=== PATIENT | female | born 2000 | race Caucasian/White ===

== ENCOUNTER → 2022-09-15 | Outpatient (CLI) | payer OTHER ==
[2022-09-15 18:53] LABS: HCT 40.2 % (37.2-46.3); HGB 13.5 g/dL (12.0-15.0); MCH 32.8 pg (27.0-32.0); MCHC 33.6 g/dL (32.0-37.0); MCV 97.6 fL (80.0-97.0); Mean Platelet Volume 10.9 fL (9.5-12.2); NRBC Per 100 WBC 0 /100 WBCS (0.0-0.0); Platelet Count 284 X 10*3/uL (140-440); RBC 4.12 X 10*6/uL (4.10-5.20); RDW 12.7 % (11.5-14.5); WBC 11.74 X 10*3/uL (4.50-10.00)
[2022-09-15 19:25] LABS: Hepatitis B Surface Antigen Nonreactive (Nonreactive)
[2022-09-15 21:27] LABS: HIV 2 AB Non-Reactive (Non-Reactive); HIV AB P24 Non-Reactive (Non-Reactive); HIV P24 AG Non-Reactive (Non-Reactive)
== END | disposition home or self-care (01) ==
LOC: LABWHC1 12:28
PROVIDERS: ATTEND Obstetrics & Gynecology Obstetrics
DX: Z34.02 Encounter for supervision of normal first pregnancy, second trimester (principal); Z3A.00 Weeks of gestation of pregnancy not specified
CPT/HCPCS: 36415; 85027; 86762; 86780; 86850; 86900; 86901; 87340; 87390

== ENCOUNTER → 2023-03-09 | Outpatient (CLI) | payer OTHER ==
[2023-03-09 03:09] VITALS: BP 99/54; PULSE 86; RESP 16; TEMP 98.2
--- NOTE | 2023-03-15 09:09 | P.MSEPDOC ---
Presenting Problems - Arrival Data Date of Arrival on Unit: 03/09/23 Time of Arrival on Unit: 01:24 Mode of Transport: Ambulatory - Complaint OB-Reason for Admission/Chief Complaint: Possible Onset of Labor Comment: Patient arrived stating that she started having contractions around 2300. after having sexual intercourse. Patient stated that she is unsure if water broke did. feel leaking of fluid after intercourse. Patient states she has had some slight spotting. since intercourse too. Contraction pain is 2/10. Medical History - Information : 1 Para: 0 Term: 0 : 0 Abortions: Spontaneous or Elective: 0 Number of Living Children: 0 - Gestational Age Gestational Age by IDALMIS (wks/days): 39 Weeks and 5 Days - History Comment: denies Review of Systems - Review of Systems Constitutional: No problems Breast: No problems ENT: No problems Cardiovascular: No problems Respiratory: No problems Gastrointestinal: No problems Genitourinary: No problems Musculoskeletal: No problems Neurological: No problems Skin: No problems Vital Signs - Temperature Temperature: 98.2 F Temperature Source: Temporal Artery Scan - Pulse Pulse Oximetery Pulse Rate: 86 Pulse Assessment Method: Pulse Oximetry - Respirations Respiratory Rate: 16 Oxygen Delivery Method: Room Air O2 Sat by Pulse Oximetry: 98 - Blood Pressure Right Arm Blood Pressure: 99/54 Blood Pressure Mean: 69 Blood Pressure Source: Automatic Cuff Medical Screen Scoring - Cervical Exam Dilation (cm): 1 Effacement (%): 60 Station: -2 Membranes: Intact - Uterine Contractions Frequency From (mins): 7 Frequency To (mins): 10 Duration From (seconds): 40 Duration To (seconds): 140 Intensity: Mild Resting: Soft to palpation - Assessment - Baby A Baseline FHR: 120 Heart Rate - NICHD Category: Category I (Normal) NST: Reactive Physician Notification - Physician Notified Physician Notified Date: 03/09/23 Physician Notified Time: 02:44 Physician: Leonor Mantilla Order Received: Yes - Notification Comment Comment: RN spoke with Dr. Mantilla regarding contraction that started 02/05/23 @ 2300 after. having sexual intercourse. RN reported on FHR cat1, contractions irregular 7-10 minutes. apart, pain 2/10, vaginal discharge, no clear fluid leaking, slight pink tinge spotting. vitals, no cervical change with [address] Mantilla is discharging patient and patient is to keep appt with Dr. Gregory. Maternal Triage Index - Non-Urgent/Priority 4 Non-Urgent Priority 4: Yes Criteria Met for Priority 4: Patient arrived stating that she started having contractions around 2300. after having sexual intercourse. Patient stated that she is unsure if water broke did. feel leaking of fluid after intercourse. Patient states she has had some slight spotting. since intercourse too. Contraction pain is 2/10. Disposition - Disposition OB Disposition: Discharge to home Discharge Date: 03/09/23 Discharge Time: 02:45 I agree with the RN Medical Screening Exam: Yes Case reviewed; plan agreed upon as documented in EMR&OBIX.: Yes Diagnosis: FALSE LABOR AT OR AFTER 37 COMPLETED WEEKS OF GESTATION
== END ==
LOC: FBPOP 01:24
PROVIDERS: ATTEND Obstetrics & Gynecology
DX: O47.1 False labor at or after 37 completed weeks of gestation (principal); Z3A.39 39 weeks gestation of pregnancy
CPT/HCPCS: 59025; 84112; 99213

== ENCOUNTER 2023-03-11 03:18 | Inpatient (IN) | payer OTHER ==
[2023-03-11] MEDS ORDERED: AMPICILLIN 2,000 MG in SODIUM CHLORIDE 0.9% 100 ML IVPB STA (05:33)
[2023-03-11] MEDS ORDERED: miSOPROStoL 200 MCG TAB PO PRN (05:33)
[2023-03-11] MEDS ORDERED: OXYTOCIN 10 UNIT/ML 1 ML VIAL IM PRN (05:33)
[2023-03-11] MEDS ORDERED: LIDOCAINE 0.5% (PF) 5 MG/ML (50 ML SDV) SQ PRN (05:33)
[2023-03-11] MEDS ORDERED: METHYLERGONOVINE 0.2 MG/ML 1 ML AMP IM PRN (05:33)
[2023-03-11] MEDS ORDERED: TRANEXAMIC ACID IN NACL,ISO-OS 1,000 MG in EMPTY BAG 1 BAG IV PRN (05:33)
[2023-03-11] MEDS ORDERED: CARBOPROST TROMETHAMINE 250 MCG/ML 1 ML AMP IM PRN (05:33)
[2023-03-11] MEDS ORDERED: TERBUTALINE 1 MG/ML VIAL SQ PRN (05:33)
[2023-03-11] MEDS ORDERED: BUTORPHANOL 2 MG/ML 1 ML VIAL IV PRN (05:36)
[2023-03-11] MEDS ORDERED: NALBUPHINE 10 MG/ML (10 ML MDV) IV PRN (05:44)
[2023-03-11] MEDS ORDERED: OXYTOCIN 30 UNITS/500 ML NS 30 UNIT in SALINE 1 500ML.BAG IV SCH ×2 (05:45→15:45)
[2023-03-11 05:46] LABS: Basophils % (A) 0 %; Eosinophils # (A) 0.1 k/uL (0-0.7); Eosinophils % (A) 1 %; HCT 38.2 % (34.0-46.0); HGB 13.4 gm/dL (11.4-16.0); Lymphocytes # (A) 1.8 k/uL (1.0-4.8); Lymphocytes % (A) 14 %; MCH 34.2 pg (25.0-35.0); MCHC 35.1 g/dL (31.0-37.0); MCV 97.3 fL (80.0-100.0); Mean Platelet Volume 9.5; Monocytes # (A) 0.6 k/uL (0-1.0); Monocytes % (A) 5 %; Neutrophils # (A) 10.3 k/uL (1.3-7.7); Neutrophils % (A) 79 %; Platelet Count 190 k/uL (150-450); RBC 3.93 m/uL (3.80-5.40); RDW 12.9 % (11.5-15.5); WBC 13.1 k/uL (3.8-10.6)
[2023-03-11] MEDS: LACTATED RINGERS 1,000 ML IV SCH ×4 (05:56→09:45)
[2023-03-11] MEDS: AMPICILLIN 1,000 MG in SODIUM CHLORIDE 0.9% 50 ML IVPB SCH ×2 (09:45→13:50)
--- NOTE | 2023-03-11 15:38 | P.HPOB ---
History of Present Illness H&P Date: 03/11/23 Chief Complaint: IUP @ 40 0/7 weeks, labor This is a 22 yo at 40 0/7 weeks that presents with c/o contractions that began yesterday afternoon. She denied ROM. She has been receiving routine care with myself and has been essentially uncomplicated. Patient was admitted overnight, noted to be 4 cm around 7:30 this morning. Patient did request epidural this morning which was placed without difficulty by the anesthesia department. Patient is comfortable. Currently patient is merari every 4 minutes, heart tones are category 1 On bloodwork this patient has a blood type of O+, rubella status immune, B surface antigen negative, HIV negative, RPR is nonreactive, group beta strep culture positive Past Medical History Past Medical History: Asthma Additional Past Medical History / Comment(s): vasovagal syncope with blood draws/needles. History of Any Multi-Drug Resistant Organisms: None Reported Past Surgical History: No Surgical Hx Reported Past Anesthesia/Blood Transfusion Reactions: No Reported Reaction Additional Past Anesthesia/Blood Transfusion Reaction / Comment(s): no hx of blood products received. Past Psychological History: Anxiety, Depression Smoking Status: Never smoker Past Alcohol Use History: None Reported Past Drug Use History: None Reported Medications and Allergies Home Medications Medication Instructions Recorded Confirmed Type Vit No.179/Iron/Folic 1 tablet PO DAILY 03/09/23 03/11/23 History [ Tablet] Allergies Allergy/AdvReac Type Severity Reaction Status Date / Time No Known Allergies Allergy Verified 03/11/23 03:23 Exam Osteopathic Statement: *. No significant issues noted on an osteopathic structural exam other than those noted in the History and Physical/Consult. 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 heart tones returned be category 1 and she is merari every 4 minutes. Results Result Diagrams: 03/11/23 05:33 Abnormal Lab Results - Last 24 Hours (Table) 03/11/23 Range/Units 05:33 WBC 13.1 H (3.8-10.6) k/uL Neutrophils # 10.3 H (1.3-7.7) k/uL Assessment and Plan (1) Term Current Visit: Yes Status: Acute Code(s): Z34.90 - ENCNTR FOR SUPRVSN OF NORMAL , UNSP, UNSP TRIMESTER SNOMED Code(s): 33340810 (2) Positive GBS test Current Visit: Yes Status: Acute Code(s): B95.1 - STREPTOCOCCUS, GROUP B, CAUSING DISEASES CLASSD ELSWHR SNOMED Code(s): 638801589 (3) Active labor Current Visit: Yes Status: Acute Code(s): PVJ7697 - SNOMED Code(s): 154713895 Plan: 22-year-old 1 para 0 at 40-0/7 weeks that presents with complaints of regular painful contractions. Patient was noted to be in active labor no submitted overnight. Patient is currently comfortable with epidural. Amniotomy was performed and clear fluid was obtained. We will augment labor with Pitocin given of contractions since epidural was placed. Anticipate spontaneous vaginal delivery later today.
[2023-03-11] MEDS ORDERED: LANOLIN CREAM 5 GM TUBE TOPICAL PRN (15:40)
[2023-03-11] MEDS ORDERED: SIMETHICONE 80 MG CHEWABLE PO PRN (15:40)
[2023-03-11] MEDS ORDERED: BENZOCAINE/MENTHOL SPRAY 1 GM/SPRAY AEROSOL TOPICAL PRN (15:40)
[2023-03-11] MEDS ORDERED: diphenhydrAMINE 50 MG CAP PO PRN (15:40)
[2023-03-11] MEDS ORDERED: ZOLPIDEM 5 MG TAB PO PRN (15:40)
[2023-03-11] MEDS ORDERED: HYDROCORTISONE 2.5% RECTAL CREAM 30 GM TUBE RECTAL PRN (15:40)
[2023-03-11] MEDS ORDERED: diphenhydrAMINE 25 MG CAP PO PRN (15:40)
[2023-03-11] MEDS ORDERED: diphenhydrAMINE 50 MG/ML 1 ML VIAL IVP PRN ×2 (15:40)
--- NOTE | 2023-03-11 15:40 | P.PROBDLV ---
Vaginal Delivery Note - . Vaginal Delivery Note: This is a 22-year-old 1 para 0 that presented at 40-0/7 weeks with complaints of regular painful contractions. Patient had been receiving routine care which has been essentially uncomplicated. Patient was noted to be group beta strep positive culture therefore antibiotics were begun when she was admitted. Patient made slow progress to the night and this morning was noted to be 6 cm amniotomy was performed and clear fluid was obtained. Patient did become uncomfortable and requested epidural throughout the night in addition. Patient made slow progress through the day eventually she was noted to be complete and began pushing. With excellent maternal effort she had a normal spontaneous vaginal delivery of a viable female at 1518, Apgars of 9 and 9 at one and 5 minutes respectively. Weight is pending as the infant is on the maternal abdomen. After two-minute delay the local cord was doubly clamped and cut. The placenta was delivered spontaneously intact with three-vessel cord being noted. Uterus is noted to be firm and below the umbilicus at that time. On inspection the patient's vaginal vault a clitoral laceration was appreciated. This was injected with lidocaine and repaired with 4-0 chromic in a running locked fashion. Hemostasis was appreciated after closure. Full inspection of the vaginal cuff is revealed no further lacerations. Bladder was drained with a red rubber catheter for approximately 100 mL of clear yellow urine. All counts were noted be correct 2 at the end of delivery. Patient and tolerated delivery well and are resting comfortably.
[2023-03-11] MEDS: IBUPROFEN 600 MG TAB PO SCH ×2 (15:58→23:47)
[2023-03-11 18:50] VITALS: RESP 16
[2023-03-11] MEDS: ACETAMINOPHEN TAB 325 MG TAB PO PRN (19:04)
[2023-03-11] MEDS: SENNOSIDES-DOCUSATE SODIUM 1 EACH TAB PO SCH (19:50)
[2023-03-12] MEDS: ACETAMINOPHEN TAB 325 MG TAB PO PRN (05:26)
[2023-03-12] MEDS: IBUPROFEN 600 MG TAB PO SCH ×2 (06:38→13:27)
--- NOTE | 2023-03-12 09:16 | P.DS ---
Providers Date of admission: 03/11/23 05:16 Expected date of discharge: 03/12/23 Attending physician: Consuelo Gregory Primary care physician: Stated None - Discharge Diagnosis(es) (1) Term Current Visit: Yes Status: Acute (2) Positive GBS test Current Visit: Yes Status: Acute (3) Active labor Current Visit: Yes Status: Acute Hospital Course: Cystoscopy a 22-year-old 1 now para 1 presented to labor and delivery on 03/11 with complaints of regular painful contractions. Patient was noted to be 4 cm dilated upon admission. Patient been receiving routine care with myself which appeared essentially uncomplicated. Patient does have a past medical history of asthma. She states her asthma has been well controlled throughout the . Upon admission patient noted good movement, denied vaginal bleeding or loss of fluid. Patient was known group B beta strep positive and IV antibiotics were begun. Patient made slow progress through the night and in the morning amniotomy was performed clear fluid was obtained. Patient did receive an epidural just prior to amniotomy. Patient progressed slowly through labor Pitocin augmentation of labor was begun. Patient eventually was noted to be completely dilated. Patient was placed in a modified lithotomy position and with excellent maternal effort had a normal spontaneous vaginal delivery of a viable female at 1518, weight of 7 pounds 8.8 ounces, Apgars of 9 and 9 at one and 5 minutes respectively. Patient did sustain a clitoral laceration was was repaired in usual fashion with 4-0 chromic after instillation of lidocaine. Patient's post course has been uneventful. On this day #1 she is ambulating and voiding without difficulty. She is tolerating a regular diet without nausea or vomiting. She states her pain is well-controlled. She states her lochia is moderate. She is pumping. Patient Condition at Discharge: Good Plan - Discharge Summary New Discharge Prescriptions: No Action Vit No.179/Iron/Folic [ Tablet] 1 tablet PO DAILY Discharge Medication List Vit No.179/Iron/Folic [ Tablet] 1 tablet PO DAILY 03/09/23 [History] Follow up Appointment(s)/Referral(s): Consuelo Gregory DO [Doctor of Osteopathic Medicine] - 4 Weeks Patient Instructions/Handouts: Vaginal Delivery (GEN), Vaginal Delivery (DC) Activity/Diet/Wound Care/Special Instructions: No tubs or intercourse until 6 weeks . [id number] ibuprofen 6 her milligrams every 6 hours as needed for pain. Patient is to call the office to make a routine visit in 4 weeks. Should patient amnio concerns prior to this appointment she is urged to call the office. Discharge Disposition: HOME SELF-CARE
[2023-03-12] MEDS: SENNOSIDES-DOCUSATE SODIUM 1 EACH TAB PO SCH (13:29)
[2023-03-12 16:45] VITALS: BP 120/70; PULSE 80; TEMP 98.3
== END 2023-03-12 16:30 | disposition home or self-care (01) | DRG 807 ==
LOC: FBPOP 03:18 → 4FBP 05:16
PROVIDERS: ADMIT Obstetrics & Gynecology; ATTEND Obstetrics & Gynecology Obstetrics
PROC: 10E0XZZ Delivery of Products of Conception, External Approach (ICD-10-PCS; principal; 2023-03-11)
PROC: 10907ZC Drainage of Amniotic Fluid, Therapeutic from Products of Conception, Via Natural or Artificial Opening (ICD-10-PCS; 2023-03-11)
PROC: 0HQ9XZZ Repair Perineum Skin, External Approach (ICD-10-PCS; 2023-03-11)
DX: O99.824 Streptococcus B carrier state complicating childbirth (principal); Z37.0 Single live birth; J45.909 Unspecified asthma, uncomplicated; O70.0 First degree perineal laceration during delivery; O99.52 Diseases of the respiratory system complicating childbirth; Z3A.40 40 weeks gestation of pregnancy; Z28.310 Unvaccinated for COVID-19
CPT/HCPCS: 59025; 84112; 85025; 86850; 86900; 86901; 99213

== ENCOUNTER 2025-02-06 20:16 | Emergency (ER) | payer OTHER ==
[2025-02-06 20:26] VITALS: RESP 18; TEMP 98.2
--- NOTE | 2025-02-06 21:11 | ED ---
Abdominal Pain HPI - General Chief Complaint: Nausea/Vomiting/Diarrhea Stated Complaint: Abdominal pain, nauseau Time Seen by Provider: 02/06/25 20:27 Source: patient, RN notes reviewed Mode of arrival: ambulatory Limitations: no limitations - History of Present Illness Initial Comments: This is a 24-year-old female who presents to the emergency department for abdominal pain, nausea, and vomiting. Patient states that it has been going on for 7 to 10 days at this point. Abdominal pain is centralized, possibly slightly worse on the right. States that it is flared up by eating almost anything. She has also had constant nausea and vomiting. She was given a prescription for Zofran without any relief. Stools are also very loose. Her symptoms did start shortly after taking medication to delay her period, and she is unsure if it may be related. She is scheduled to have an outpatient ultrasound tomorrow, but states that because of the pain she could not wait. MD Complaint: abdominal pain - Related Data Home Medications Medication Instructions Recorded Confirmed Vit No.179/Iron/Folic 1 tablet PO DAILY 03/09/23 03/11/23 [ Tablet] Previous Rx's Medication Instructions Recorded Dicyclomine [Bentyl] 20 mg PO QID PRN #30 tablet 02/06/25 Ketorolac [Toradol] 10 mg PO Q6HR PRN #15 tab 02/06/25 Prochlorperazine [Compazine] 10 mg PO Q6H PRN #20 tab 02/06/25 Allergies Allergy/AdvReac Type Severity Reaction Status Date / Time No Known Allergies Allergy Verified 02/06/25 20:26 Review of Systems ROS Statement: Those systems with pertinent positive or pertinent negative responses have been documented in the HPI. ROS Other: All systems not noted in ROS Statement are negative. Past Medical History Past Medical History: Asthma Additional Past Medical History / Comment(s): vasovagal syncope with blood draws/needles. History of Any Multi-Drug Resistant Organisms: None Reported Past Surgical History: No Surgical Hx Reported Past Anesthesia/Blood Transfusion Reactions: No Reported Reaction Additional Past Anesthesia/Blood Transfusion Reaction / Comment(s): no hx of blood products received. Past Psychological History: Anxiety, Depression Smoking Status: Never smoker Past Alcohol Use History: None Reported Past Drug Use History: None Reported General Exam Limitations: no limitations General appearance: alert, in no apparent distress Head exam: Present: atraumatic, normocephalic, normal inspection Respiratory exam: Present: normal lung sounds bilaterally. Absent: respiratory distress, wheezes, rales, rhonchi, stridor Cardiovascular Exam: Present: regular rate, normal rhythm GI/Abdominal exam: Present: soft, normal bowel sounds. Absent: distended, tenderness, guarding, rebound, rigid Neurological exam: Present: alert, oriented X3, CN II-XII intact Psychiatric exam: Present: normal affect, normal mood Skin exam: Present: warm, dry, intact, normal color. Absent: rash Course Vital Signs 02/06/25 02/06/25 20:23 22:55 Temperature 98.2 F Pulse Rate 72 76 Respiratory 18 18 Rate Blood Pressure 101/64 92/66 O2 Sat by Pulse 100 100 Oximetry Medical Decision Making - Medical Decision Making This is a 24-year-old female who presents to the emergency department for abdominal pain, nausea, and vomiting. Was pt. sent in by a medical professional or institution? @ -No Did you speak to anyone other than the patient for history? @ -No Did you review nursing and triage notes? @ -Yes, and I agree, it is accurate with regards to the patient's symptoms. Were old charts reviewed? @ -No Differential Diagnosis? @ -Differential Abdominal Pain Women: Appendicitis, Cholecystitis, diverticulosis, ischemic bowel, pancreatitis, hepatitis, UTI, gastroenteritis, AAA, incarcerated hernia, bowel obstruction, constipation, inflammatory bowel, hepatitis, peptic ulcer disease, splenic infarction, perforated viscus, vulvitis, ovarian torsion, PID, kidney stone, placenta abruption, this is not meant to be an all-inclusive list EKG interpreted by me (3pts min.)? @ -EKG interpreted by me demonstrating the following: Sinus rhythm. Ventricular rate 69 bpm, ID interval 164 ms, QRS duration 85 ms, QTc 380 ms. X-rays interpreted by me (1pt min.)? @ -Not obtained CT interpreted by me (1pt min.)? @ -Not obtained U/S interpreted by me (1pt. min.)? @ -Gallbladder ultrasound obtained. My interpretation identifies no cholelithiasis. What testing was considered but not performed? (CT, X-rays, U/S, labs)? Why? @ -CT scan of the abdomen and pelvis, however patient declined. What meds were considered but not given? Why? @ -None Did you discuss the management of the patient with other professionals? @ -No Did you reconcile home meds? @ -No Was smoking cessation discussed for >3mins.? @ -No Was critical care preformed (if so, how long)? @ -No Were there social determinants of health that impacted care today? How? (Homelessness, low income, unemployed, alcoholism, drug addiction, transportation, low edu. Level, literacy, decrease access to med. care, longterm, rehab)? @ -No Was there de-escalation of care discussed even if they declined? (Discuss DNR or withdrawal of care, Hospice)? @ -No What co-morbidities impacted this encounter? (DM, HTN, Smoking, COPD, CAD, Cancer, CVA, Hep., AIDS, mental health diagnosis, sleep apnea, morbid obesity)? @ -None Was patient admitted / discharged? @ -Discharged. Lab work unremarkable. Gallbladder ultrasound obtained revealing no acute process. She was treated with IV fluids, Toradol, Compazine, and pantoprazole, which she states was effective. She had previously been prescribed Zofran which did not help her symptoms. Discussed that at this point the cause of her symptoms is not entirely clear. I did offer a CT scan for further evaluation, however patient declined and states that she was tired and would just like to go home. Advised she follow-up with her primary care provider and discuss further testing with something like a CT scan if indicated. Compazine, Bentyl, and Toradol prescribed for further symptomatic management. Patient discharged home in stable condition. Return precautions reviewed in depth, the patient is instructed to return to the emergency department with any new, worsening, or concerning symptoms. Patient verbalized understanding. Undiagnosed new problem with uncertain prognosis? @ -None Drug Therapy requiring intensive monitoring for toxicity (Heparin, Nitro, I nsulin, Cardizem)? @ -None Were any procedures done? @ -None Diagnosis/symptom? @ -Abdominal pain, nausea and vomiting Acute, or Chronic, or Acute on Chronic? @ -Acute Uncomplicated (without systemic symptoms) or Complicated (systemic symptoms)? @ -Uncomplicated Side effects of treatment? @ -None Exacerbation, Progression, or Severe Exacerbation] @ -Not applicable Poses a threat to life or bodily function? @ -No - Lab Data Result diagrams: 02/06/25 21:09 02/06/25 21:09 Lab Results 02/06/25 02/06/25 02/06/25 Range/Units 21:09 21:09 21:09 WBC 6.64 (4.50-10.00) 10*3/uL RBC 3.98 L (4.10-5.20) 10*6/uL Hgb 12.8 (12.0-15.0) g/dL Hct 36.8 L (37.2-46.3) % MCV 92.5 (80.0-97.0) fL MCH 32.2 H (27.0-32.0) pg MCHC 34.8 (32.0-37.0) g/dL Plt Count 255 (140-440) 10*3/uL MPV 10.4 (9.5-12.2) fL Immature Gran % (Auto) 0 % Neutrophils % 44.2 % Lymphocytes % 39.0 % Monocytes % 11.6 % Eosinophils % 4.4 % Basophils % 0.8 % Immature Gran # 0.00 (0.00-0.04) 10*3/uL Neutrophils # 2.94 (1.80-7.70) 10*3/uL Lymphocytes # 2.59 (0.90-5.00) 10*3/uL Monocytes # 0.77 (0.20-1.00) 10*3/uL Eosinophils # 0.29 (0.04-0.35) 10*3/uL Basophils # 0.05 (0.00-0.10) 10*3/uL Sodium 139 (137-145) mmol/L Potassium 3.9 (3.5-5.1) mmol/L Chloride 106 (98-107) mmol/L Carbon Dioxide 24 (22-30) mmol/L Anion Gap 9 mmol/L BUN 11 (7-17) mg/dL Creatinine 0.78 (0.52-1.04) mg/dL Est GFR (CKD-EPI)AfAm >90 (>60 ml/min/1.73 sqM) Est GFR (CKD-EPI)NonAf >90 (>60 ml/min/1.73 sqM) Glucose 99 (74-99) mg/dL Plasma Lactic Acid Roe 1.0 (0.7-2.0) mmol/L Calcium 9.6 (8.4-10.2) mg/dL Magnesium 2.0 (1.6-2.3) mg/dL Total Bilirubin 0.5 (0.2-1.3) mg/dL AST 18 (14-36) U/L ALT 14 (4-34) U/L Alkaline Phosphatase 65 (38-126) U/L Total Protein 7.1 (6.3-8.2) g/dL Albumin 4.5 (3.5-5.0) g/dL Amylase 84 (30-110) U/L Lipase 129 (23-300) U/L HCG, Qual Not Detected - Radiology Data Radiology results: report reviewed, image reviewed Disposition Clinical Impression: Abdominal pain, Nausea and vomiting Disposition: HOME SELF-CARE Instructions (If sedation given, give patient instructions): Acute Nausea and Vomiting (ED), Abdominal Pain (ED) Additional Instructions: Return to the emergency department with any new, worsening, or concerning symptoms. Take the Toradol with Tylenol as needed for pain relief. If you choose to take the Toradol, do not take any other anti-inflammatories such as ibuprofen, take one or the other. You can try taking the Compazine up to every 6 hours as needed for nausea and vomiting if the Zofran is not effective. You can also try taking the Bentyl up to 4 times daily to help with abdominal pain and cramping. Follow-up with your primary care provider and discuss if additional testing like a CT scan would be warranted. Prescriptions: Dicyclomine [Bentyl] 20 mg PO QID PRN #30 tablet PRN Reason: Gi Upset Prochlorperazine [Compazine] 10 mg PO Q6H PRN #20 tab PRN Reason: Nausea And Vomiting Ketorolac [Toradol] 10 mg PO Q6HR PRN #15 tab PRN Reason: Pain Is patient prescribed a controlled substance at d/c from ED?: No Referrals: Benjamin See MD [Primary Care Provider] - 1-2 days Time of Disposition: 22:51
[2025-02-06] MEDS: SODIUM CHLORIDE 0.9% 1,000 ML IV ONE (21:13)
[2025-02-06] MEDS: PANTOPRAZOLE 40 MG/10 ML VIAL IVP STA (21:13)
[2025-02-06] MEDS: KETOROLAC 15 MG/ML 1 ML VIAL IVP STA (21:13)
[2025-02-06] MEDS: PROCHLORPERAZINE INJ 10 MG/2 ML VIAL IVP STA (21:14)
[2025-02-06 21:42] LABS: Basophils # (A) 0.05 10*3/uL (0.00-0.10); Basophils % (A) 0.8 %; Eosinophils # (A) 0.29 10*3/uL (0.04-0.35); Eosinophils % (A) 4.4 %; HCT 36.8 % (37.2-46.3); HGB 12.8 g/dL (12.0-15.0); Lymphocytes # (A) 2.59 10*3/uL (0.90-5.00); MCH 32.2 pg (27.0-32.0); MCHC 34.8 g/dL (32.0-37.0); MCV 92.5 fL (80.0-97.0); Mean Platelet Volume 10.4 fL (9.5-12.2); Monocytes # (A) 0.77 10*3/uL (0.20-1.00); Monocytes % (A) 11.6 %; Neutrophils # (A) 2.94 10*3/uL (1.80-7.70); Neutrophils % (A) 44.2 %; Platelet Count 255 10*3/uL (140-440); RBC 3.98 10*6/uL (4.10-5.20); RDW 12.6 % (11.5-14.5); WBC 6.64 10*3/uL (4.50-10.00)
[2025-02-06 21:50] LABS: HCG,Qualitative Serum Not Detected
[2025-02-06 21:54] LABS: ALT 14 U/L (4-34); AST 18 U/L (14-36); African American GFR (CKD) >90 (>60 ml/min/1.73 sqM); Albumin 4.5 g/dL (3.5-5.0); Alkaline Phosphatase 65 U/L (38-126); Amylase 84 U/L (30-110); Anion Gap 9 mmol/L; Blood Urea Nitrogen 11 mg/dL (7-17); Calcium 9.6 mg/dL (8.4-10.2); Carbon Dioxide 24 mmol/L (22-30); Chloride 106 mmol/L (98-107); Glucose 99 mg/dL (74-99); Lipase 129 U/L (23-300); Non-African American GFR(CKD) >90 (>60 ml/min/1.73 sqM); Potassium 3.9 mmol/L (3.5-5.1); Sodium 139 mmol/L (137-145); Total Bilirubin 0.5 mg/dL (0.2-1.3); Total Protein 7.1 g/dL (6.3-8.2)
--- NOTE | 2025-02-06 22:45 | US ---
EXAMINATION TYPE: US gallbladder DATE OF EXAM: 02/06/2025 COMPARISON: NONE CLINICAL INDICATION: Female, 24 years old with history of Right sided abdominal pain; RUQ pain TECHNIQUE: Grayscale and color Doppler imaging of the right upper quadrant was performed. FINDINGS: EXAM MEASUREMENTS: Liver Length: 13.0 cm Gallbladder Wall: 0.18 cm CBD: 0.49 cm Right Kidney: 9.9 x 5.1 x 4.1 cm SLOT HOST NOTES: Pancreas: parts seen appear wnl Liver: wnl Gallbladder: wnl Evidence for sonographic Orozco's sign: No CBD: upper limits of normal Right Kidney: wnl IMPRESSION: 1. No acute ultrasound changes right upper quadrant [facility], Workstation: [facility], 02/06/2025 10:43 PM
[2025-02-06 23:02] VITALS: BP 92/66; PULSE 76
[2025-02-06] MEDS: ACET/COD 300 MG/30 MG STARTER PACK 6 TAB BTL PO STA (23:02)
== END 2025-02-06 23:02 | disposition home or self-care (01) ==
LOC: EC 20:16
DX: R11.2 Nausea with vomiting, unspecified (principal); R10.9 Unspecified abdominal pain
CPT/HCPCS: 36415; 93005; 80053; 82150; 83605; 83690; 83735; 85025; 84703; 76705; 99284; 96374; 96375 ×2; 96361; J0780; J1885; J2470

== ENCOUNTER 2025-02-07 00:01 | Emergency (ER) | payer OTHER ==
[2025-02-07 00:12] VITALS: RESP 18; TEMP 98.5
--- NOTE | 2025-02-07 00:31 | ED ---
Recheck HPI - General Chief Complaint: Recheck/Abnormal Lab/Rx Stated Complaint: shaking uncontroablly Time Seen by Provider: 02/07/25 00:13 Source: EMS, RN notes reviewed, old records reviewed Mode of arrival: EMS Limitations: no limitations - History of Present Illness Initial Comments: This is a 24-year-old female to the ER for evaluation of uncontrolled shaking. Patient is of recent hospital discharge where she was given medication for nausea and vomiting patient since he left the ER began to shake uncontrollably and presents to the ER with uncontrolled shaking, mild anxiety MD Complaint: other (Medication reaction) -: hour(s) Associated Symptoms: none Treatments Prior to Arrival: other - Related Data Home Medications Medication Instructions Recorded Confirmed Vit No.179/Iron/Folic 1 tablet PO DAILY 03/09/23 03/11/23 [ Tablet] Previous Rx's Medication Instructions Recorded Dicyclomine [Bentyl] 20 mg PO QID PRN #30 tablet 02/06/25 Ketorolac [Toradol] 10 mg PO Q6HR PRN #15 tab 02/06/25 Prochlorperazine [Compazine] 10 mg PO Q6H PRN #20 tab 02/06/25 Allergies Allergy/AdvReac Type Severity Reaction Status Date / Time No Known Allergies Allergy Verified 02/06/25 20:26 Review of Systems ROS Statement: Those systems with pertinent positive or pertinent negative responses have been documented in the HPI. ROS Other: All systems not noted in ROS Statement are negative. Past Medical History Past Medical History: Asthma Additional Past Medical History / Comment(s): vasovagal syncope with blood draws/needles. History of Any Multi-Drug Resistant Organisms: None Reported Past Surgical History: No Surgical Hx Reported Past Anesthesia/Blood Transfusion Reactions: No Reported Reaction Additional Past Anesthesia/Blood Transfusion Reaction / Comment(s): no hx of blood products received. Past Psychological History: Anxiety, Depression Smoking Status: Never smoker Past Alcohol Use History: None Reported Past Drug Use History: None Reported General Exam Limitations: no limitations General appearance: alert, in no apparent distress Head exam: Present: atraumatic, normocephalic, normal inspection Eye exam: Present: normal appearance, PERRL, EOMI. Absent: scleral icterus, conjunctival injection, periorbital swelling ENT exam: Present: normal exam, mucous membranes moist Neck exam: Present: normal inspection. Absent: tenderness, meningismus, lymphadenopathy Respiratory exam: Present: normal lung sounds bilaterally. Absent: respiratory distress, wheezes, rales, rhonchi, stridor Cardiovascular Exam: Present: regular rate, normal rhythm, normal heart sounds. Absent: systolic murmur, diastolic murmur, rubs, gallop, clicks GI/Abdominal exam: Present: soft, normal bowel sounds. Absent: distended, tenderness, guarding, rebound, rigid Extremities exam: Present: normal inspection, full ROM, normal capillary refill. Absent: tenderness, pedal edema, joint swelling, calf tenderness Back exam: Present: normal inspection Neurological exam: Present: alert, oriented X3, CN II-XII intact Psychiatric exam: Present: normal affect, normal mood Skin exam: Present: warm, dry, intact, normal color. Absent: rash Course Vital Signs 02/07/25 00:03 Temperature 98.5 F Pulse Rate 109 H Respiratory 18 Rate Blood Pressure 105/62 O2 Sat by Pulse 98 Oximetry - Reevaluation(s) Reevaluation #1: 02/07/25 00:45 Medical records reviewed Reevaluation #2: 02/07/25 00:45 Patient symptoms improved Reevaluation #3: 02/07/25 00:45 Patient informed of results and questions answered Reevaluation #4: Was pt. sent in by a medical professional or institution (REYNA Vargas, PUBLIC HEALTH MICROBIOLOGIST, urgent care, hospital, or long-term...) When possible be specific @ -no Did you speak to anyone other than the patient for history (EMS, parent, family, police, friend...)? What history was obtained from this source @ -no Did you review nursing and triage notes (agree or disagree)? Why? @ -agree Are old charts reviewed (outside hosp., previous admission, EMS record, old EKG, old radiological studies, urgent care reports/EKG's, long-term records)? Report findings @ -yes Differential Diagnosis (chest pain, altered mental status, abdominal pain women, abdominal pain men, vaginal bleeding, weakness, fever, dyspnea, syncope, headache, dizziness, GI bleed, back pain, seizure, CVA, palpatations, mental health, musculoskeletal)? @ -prior EKG interpreted by me (3pts min.). @ -yes X-rays interpreted by me (1pt min.). @ -yes negative for acute disease CT interpreted by me (1pt min.). @ -no U/S interpreted by me (1pt. min.). @ -no What testing was considered but not performed or refused? (CT, X-rays, U/S, labs)? Why? @ -none What meds were considered but not given or refused? Why? @ -none Did you discuss the management of the patient with other professionals (professionals i.e. [employer], PA, PUBLIC HEALTH MICROBIOLOGIST, lab, RT, psych nurse, web content & social media manager, enrollment services dean, teacher, chief creative officer, nurse outreach case manager)? Give summary @ -no Was smoking cessation discussed for >3mins.? @ -no Was critical care preformed (if so, how long)? @ -no Were there social determinants of health that impacted care today? How? (Homelessness, low income, unemployed, alcoholism, drug addiction, transportation, low edu. Level, literacy, decrease access to med. care, skilled nursing, rehab)? @ -none Was there de-escalation of care discussed even if they declined (Discuss DNR or withdrawal of care, Hospice)? DNR status @ -no What co-morbidities impacted this encounter? (DM, HTN, Smoking, COPD, CAD, Cancer, CVA, ARF, Chemo, Hep., AIDS, mental health diagnosis, sleep apnea, morbid obesity)? @ -none Was patient admitted / discharged? Hospital course, mention meds given and route, prescriptions, significant lab abnormalities, going to OR and other pertinent info. @ - Undiagnosed new problem with uncertain prognosis? @ -no Drug Therapy requiring intensive monitoring for toxicity (Heparin, Nitro, Insulin, Cardizem)? @ -no Were any procedures done? @ -no Diagnosis/symptom? @ - Acute, or Chronic, or Acute on Chronic? @ -Acute Uncomplicated (without systemic symptoms) or Complicated (systemic symptoms)? @ -Complicated Side effects of treatment? @ -no Exacerbation, Progression, or Severe Exacerbation? @ -exacerbation Poses a threat to life or bodily function? How? (Chest pain, [place], [place], pneumonia, PE, COPD, DKA, ARF, appy, cholecystitis, CVA, Diverticulitis, Homicidal, Suicidal, threat to staff... and all critical care pts) @ -yes Medical Decision Making - Medical Decision Making 24 Female to the ER for evaluation of medication reaction and akathisia, patient will be discharged home symptoms improved Disposition Clinical Impression: Medication reaction, Akathisia Disposition: HOME SELF-CARE Condition: Good Instructions (If sedation given, give patient instructions): Extrapyramidal Symptoms (ED) Is patient prescribed a controlled substance at d/c from ED?: No Referrals: Benjamin See MD [Primary Care Provider] - 1-2 days Time of Disposition: 01:00
[2025-02-07] MEDS: diphenhydrAMINE 50 MG CAP PO STA (01:05)
[2025-02-07] MEDS: LORazepam 1 MG TAB PO STA (01:05)
[2025-02-07] MEDS: ONDANSETRON 4 MG ODT STARTER PACK 2 TAB BTL PO STA (01:06)
[2025-02-07] MEDS: ONDANSETRON ODT 4 MG TAB PO STA (01:06)
[2025-02-07 02:33] VITALS: BP 100/59; PULSE 79
== END 2025-02-07 02:58 | disposition home or self-care (01) ==
LOC: EC 00:01
DX: G25.71 Drug induced akathisia (principal); T50.905A Adverse effect of unspecified drugs, medicaments and biological substances, initial encounter
CPT/HCPCS: 99284; S0119

== ENCOUNTER → 2025-02-09 | Outpatient (CLI) | payer OTHER ==
--- NOTE | 2025-02-09 10:15 | US ---
EXAMINATION TYPE: US abdomen complete DATE OF EXAM: 02/09/2025 COMPARISON: 02/06/2025 CLINICAL INDICATION: Female, 24 years old with history of R10.84 ABDOMINAL PAIN; abd pain x 10 days TECHNIQUE: Grayscale and color Doppler imaging of the abdomen was performed. FINDINGS: EXAM MEASUREMENTS: Liver Length: 12.5 cm Gallbladder Wall: 0.2 cm CBD: 0.5 cm, color Doppler imaging was utilized to isolate the common bile duct for measurement. Spleen: 9.4 cm Right Kidney: 9.6x3.9x5.5 cm Left Kidney: 9.3x4.1x4.7 cm PAPER CLEANER NOTES: Pancreas: Tail obscured by overlying bowel gas Liver: hyperechoic area measuring 0.8x0.9x1.0cm Gallbladder: wnl Evidence for sonographic Orozco's sign: No CBD: wnl Spleen: wnl Right Kidney: wnl, No hydronephrosis, calculi or masses seen Left Kidney: wnl, No hydronephrosis, calculi or masses seen Upper IVC: wnl Abd Aorta: wnl exam limited by bowel gas The liver is homogenous. Persistent subcentimeter round hyperechoic lesion right hepatic lobe suspici ous for tiny hemangioma. The intrahepatic portion of the IVC and proximal abdominal aorta are within normal limits. There is no evidence of cholelithiasis. Common bile duct is unremarkable. The visua lized portions of the pancreas are homogenous. The spleen is unremarkable. Kidneys are symmetric an d free of hydronephrosis. No renal lesions are seen. IMPRESSION: Suboptimal study. No acute findings are seen to account for patient's symptoms. [facility], , 02/09/2025 10:13 AM
== END | disposition home or self-care (01) ==
LOC: RADUSWWP 07:00
PROVIDERS: ATTEND Family Medicine
DX: R10.84 Generalized abdominal pain (principal)
CPT/HCPCS: 76700

== ENCOUNTER → 2025-02-12 | Outpatient (CLI) | payer OTHER ==
--- NOTE | 2025-02-12 18:45 | CT ---
EXAMINATION TYPE: CT abdomen pelvis w con DATE OF EXAM: 02/12/2025 6:12 PM COMPARISON: Ultrasound CLINICAL INDICATION: Female, 24 years old with history of R10.84 GENERALIZED ABDOMINAL PAIN; abdomina l pain TECHNIQUE: Axial CT abdomen pelvis w con;Sagittal and coronal reformats were created on a separate w orkstation. Contrast used:100 ml mL of Isovue 300 with IV Contrast, (none if empty) Oral contrast used: with Oral Contrast (none if empty) CT DLP: 229.3 mGycm, Automated exposure control for dose reduction was used. FINDINGS: LOWER CHEST: Unremarkable ABDOMEN LIVER: Simple appearing probable cyst in the right hepatic lobe measuring 5 mm GALLBLADDER AND BILE DUCTS: Unremarkable. PANCREAS: Unremarkable. SPLEEN: Unremarkable. ADRENAL GLANDS: Unremarkable. KIDNEYS AND URETERS: No evidence of hydronephrosis or obstructing renal calculus. The ureters are unr emarkable. Left renal cortical subcentimeter cyst measuring 6 mm. No follow-up recommended. Urinary bladder wall thickening with surrounding Fat stranding. PELVIS BLADDER: No evidence for wall thickening or mass given limitations of exam. REPRODUCTIVE: Right ovarian dominant follicle measuring up to 13 mm ABDOMEN & PELVIS STOMACH AND BOWEL: No evidence of bowel obstruction. Appendix is normal. PERITONEUM/RETROPERITONEUM: No evidence of pneumoperitoneum or free fluid. VASCULATURE: No evidence of aortic aneurysm. MUSCULOSKELETAL: No acute osseous abnormalities LYMPH NODES: No gross evidence for lymphadenopathy. SOFT TISSUE/ABDOMINAL WALL: Unremarkable IMPRESSION: No evidence for acute abdominal process. The appendix is normal. No obstructive uropathy or renal blanco culus. [facility], , 02/12/2025 6:42 PM
== END | disposition home or self-care (01) ==
LOC: RADCTMAIN 16:12
PROVIDERS: ATTEND Family Medicine
DX: K38.9 Disease of appendix, unspecified (principal)
CPT/HCPCS: 74177; Q9967

== ENCOUNTER → 2025-03-16 | Outpatient (CLI) | payer OTHER ==
--- NOTE | 2025-03-16 12:03 | FL ---
EXAMINATION TYPE: FL UGI air w small bowel DATE OF EXAM: 03/16/2025 COMPARISON: None CLINICAL INDICATION: Female, 24 years old with history of R10.84 gereralized abdominal pain; [facility], TECHNIQUE: A double contrast FL UGI air w small bowel study is performed with small bowel follow thr ough. A total of 1 minute and 14 seconds of fluoroscopic time was utilized during procedure and 19 i mages obtained. Total dose area product (DAP) in uGy*m?, mGy*cm? (or similar): Not provided. FINDINGS: Bit Welder image of the abdomen shows no gross abnormality. The esophagus shows normal motility and emptying into the stomach. No evidence of hiatal hernia or s tricture noted. The stomach shows normal distensibility, peristalsis, and mucosal folds. No evidence of any mass or ulcer disease. No significant esophageal reflux was seen during real time performance of this study. The duodenal bulb and sweep are unremarkable. The small bowel study shows normal transit to the colon in less than 30 minutes. There is normal muc osal fold pattern throughout the small bowel. There is no evidence of any stricture or filling defec t noted. The terminal ileum is unremarkable. IMPRESSION: 1. No acute process. There was rapid transit of contrast from small bowel to colon at 30 minutes. Cor relate clinically. [facility], , 03/16/2025 12:01 PM
== END | disposition home or self-care (01) ==
LOC: RADFLMAIN 09:19
PROVIDERS: ATTEND Internal Medicine Gastroenterology
DX: R10.84 Generalized abdominal pain (principal)
CPT/HCPCS: 74240; 74248

== ENCOUNTER → 2025-05-01 | Outpatient (CLI) | payer OTHER ==
--- NOTE | 2025-05-01 09:27 | MR ---
EXAMINATION TYPE: MR brain wo con DATE OF EXAM: 05/01/2025 9:14 AM COMPARISON: None. CLINICAL INDICATION: Female, 24 years old with history of R51.9 HEADACHE, UNSPECIFIED, Headaches. TECHNIQUE: Multiplanar multisequence noncontrast imaging of the brain is performed. FINDINGS: On diffusion imaging demonstrates no evidence of acute ischemia. There is no evidence of midline shift or mass effect. Orbits are symmetric. Minimal changes of chroni c sinusitis. Ventricle slightly prominent centrally for the patient's age group. Mild hydrocephalus is difficult t o exclude but this could be congenital. No abnormal signal the white matter. Cerebellar tonsils low-lying in position at the level of foramen magnum. No tonsillar beaking.. Sella turcica has a normal appearance. IMPRESSION: 1. No evidence of acute ischemia. 2. No evidence of mass effect or midline shift. Low-lying cerebellar tonsils without evidence of Tom ri malformation. 3. Mild central ventricular prominence for the patient's age group. Could be congenital. Recommend fo llow-up exam on a short-term basis if symptoms persist. [facility], , 05/01/2025 9:24 AM
== END | disposition home or self-care (01) ==
LOC: RADMRIMAIN 08:38
PROVIDERS: ATTEND Family Medicine
DX: R51.9 Headache, unspecified (principal)
CPT/HCPCS: 70551